=== PATIENT | female | born 1970 | race African-American/Black ===

== ENCOUNTER 2021-12-21 20:32 | Emergency (ER) | payer BC, OTHER ==
[2021-12-21 20:46] VITALS: BP 159/70; PULSE 86; TEMP 98; BMI 31.3
[2021-12-21] MEDS ORDERED: ALBUTEROL SO4 2.5/IPRATROPIUM 0.5 INH SOL 3 ML VIAL.NEB. NEB ONE (22:26)
[2021-12-21] MEDS ORDERED: ACETAMINOPHEN 325 MG TABLET (FP) PO ONE (22:27)
[2021-12-21] MEDS ORDERED: ALBUTEROL SO4 HFA INHALER IH ONE ×2 (23:40→23:44)
[2021-12-21] MEDS ORDERED: ACETAMINOPHEN 325 MG TABLET (FP) ONE (23:43)
== END 2021-12-22 00:19 | disposition home or self-care (01) ==
LOC: JER 20:32
PROC: 3E0F7GC Introduction of Other Therapeutic Substance into Respiratory Tract, Via Natural or Artificial Opening (ICD-10-PCS; principal; 2021-12-21)
DX: R51.9 Headache, unspecified (principal); J45.909 Unspecified asthma, uncomplicated; R06.02 Shortness of breath
CPT/HCPCS: 99284-25

== ENCOUNTER 2023-10-25 04:18 | Day surgery (SDC) | payer BC, OTHER ==
[2023-10-20 10:51] VITALS: BMI 26.6
[2023-10-25] MEDS ORDERED: MIDAZOLAM HCL 2 MG/2 ML SINGLE DOSE VIAL ONE ×2 (11:21)
[2023-10-25] MEDS ORDERED: PROPOFOL 20 ML ONE ×2 (11:21→11:32)
[2023-10-25] MEDS ORDERED: FENTANYL CITRATE/PF 50 MCG/ML VIAL ONE ×4 (11:22→12:36)
[2023-10-25] MEDS ORDERED: LIDOCAINE HCL 2% JELLY 11 ML TP ONE (11:25)
[2023-10-25] MEDS: ceFAZolin SODIUM 1 GM VIAL IVPB ONE (11:38)
[2023-10-25] MEDS ORDERED: KETOROLAC TROMETHAMINE 30 MG/1 ML VIAL ONE (13:21)
[2023-10-25] MEDS ORDERED: ACETAMINOPHEN 1000 MG/100 ML BAG IVPB ONE (13:30)
[2023-10-25] MEDS ORDERED: KETOROLAC TROMETHAMINE 30 MG/1 ML VIAL IVPUSH ONE (13:30)
[2023-10-25] MEDS ORDERED: oxyCODONE HCL 5 MG TABLET PO PRN (13:30)
[2023-10-25 13:41] VITALS: RESP 18
[2023-10-25 14:55] VITALS: BP 148/80; PULSE 72; TEMP 98.4
== END 2023-10-25 14:50 | disposition home or self-care (01) ==
LOC: JASU-SURG 04:18
PROVIDERS: ATTEND Urology
PROC: 0T778DZ Dilation of Left Ureter with Intraluminal Device, Via Natural or Artificial Opening Endoscopic (ICD-10-PCS; principal; 2023-10-25 12:00)
DX: N20.0 Calculus of kidney (principal)
CPT/HCPCS: 76000-TC-FY; 94760; C1758; C2617

== ENCOUNTER 2025-03-26 06:28 | Day surgery (SDC) | payer BC ==
[2025-03-21 17:37] VITALS: BMI 33.6
[2025-03-26] MEDS ORDERED: MIDAZOLAM HCL 2 MG/2 ML SINGLE DOSE VIAL ONE (07:58)
[2025-03-26] MEDS ORDERED: PROPOFOL 20 ML ONE (07:58)
[2025-03-26] MEDS: ceFAZolin 2 GRAM PREMIX BAG IVPB ONE (08:09)
[2025-03-26] MEDS ORDERED: ONDANSETRON 4 MG/2 ML VIAL IVPUSH PRN (08:43)
[2025-03-26] MEDS ORDERED: LACTATED RINGERS SOLUTION 1,000 ML IV SCH (08:45)
[2025-03-26 11:15] VITALS: RESP 18
[2025-03-26] MEDS ORDERED: KETOROLAC TROMETHAMINE 30 MG/1 ML VIAL ONE (11:40)
[2025-03-26] MEDS ORDERED: ACETAMINOPHEN 500 MG TABLET (FP) ONE (11:41)
[2025-03-26] MEDS: KETOROLAC TROMETHAMINE 30 MG/1 ML VIAL IVPB ONE (11:51)
[2025-03-26] MEDS: ACETAMINOPHEN 500 MG TABLET (FP) PO ONE (11:51)
[2025-03-26 12:00] VITALS: BP 130/80
[2025-03-26 12:20] VITALS: PULSE 64; TEMP 97.6
== END 2025-03-26 12:59 | disposition home or self-care (01) ==
LOC: JASU-SURG 06:28
PROVIDERS: ATTEND Urology
PROC: 0TC78ZZ Extirpation of Matter from Left Ureter, Via Natural or Artificial Opening Endoscopic (ICD-10-PCS; principal; 2025-03-26 08:00)
PROC: 0T778DZ Dilation of Left Ureter with Intraluminal Device, Via Natural or Artificial Opening Endoscopic (ICD-10-PCS; 2025-03-26 08:00)
DX: N13.2 Hydronephrosis with renal and ureteral calculous obstruction (principal)
CPT/HCPCS: 76000-TC-FY; 94760; C1747; C1758; C1769; C2617